=== PATIENT | female | born 1950 | race Caucasian/White ===

== ENCOUNTER 2018-04-14 23:43 | Emergency (ER) | payer MEDICARE, OTHER ==
[~2018-04-14] VITALS: Ht 165.1 cm; Wt 81.7 kg
[2018-04-14] MEDS ORDERED: METHYLPREDNISOLO4 M1 PO (23:59)
[2018-04-14] MEDS ORDERED: MOBIC15 MG PO (23:59)
[2018-04-15] MEDS ORDERED: CARISOPRODOL 3350 MG PO
[2018-04-15 00:15] LABS: HEMATOCRIT 35.8 % (37.0-47.0); HEMOGLOBIN 12.1 gm/dL (12.0-15.0); MCH 30.8 pg (26.0-34.0); MCHC 33.9 g/dL (28.0-37.0); MCV 90.8 fL (80.0-100.0); MPV 8.3 fl. (7.2-11.1); NUCLEATED RBCS 0 /100WBC; PLATELET COUNT* 231 thou/uL (150-400); RBC 3.94 mil/uL (4.20-5.00); RDW-CV 13.2 % (10.5-14.5); WBC 6.8 thou/uL (4.0-11.0)
[2018-04-15 00:44] LABS: ALBUMIN 3.5 g/dL (3.4-5.0); CALCIUM 8.3 mg/dL (8.5-10.1); CREATININE 0.8 mg/dL (0.6-1.3); POTASSIUM 4.2 mmol/L (3.5-5.1); TOTAL BILIRUBIN 0.4 mg/dL (<0.1-1.0); TOTAL PROTEIN 7.1 g/dL (6.4-8.2)
[2018-04-15 01:42] LABS: ABSOLUTE LYMPHOCYTES 0.4 thou/uL (0.8-5.3); ABSOLUTE MONOCYTES 0.1 thou/uL (0.0-1.2); ABSOLUTE NEUTROPHILS 6.3 thou/uL (1.6-8.1)
[2018-04-15 01:43] LABS: LARGE PLATELETS RARE; PLATELET ESTIMATE ADEQUATE
[2018-04-15] MEDS ORDERED: FLEXERIL PO (01:53)
[2018-04-15] MEDS ORDERED: PERCOCET 5-3251 EACH PO (01:53)
[2018-04-15 02:25] VITALS: BP 112/70
--- NOTE | 2018-04-17 10:25 | EKG ---
[place] [address] ELECTROCARDIOGRAM REPORT Name: SHERIF SMALLS Room: [facility]#: [id number] Admission: 04/14/18 Attend Phys: Discharge: 04/15/18 Date of : 54 Report #: [id number] THIS REPORT FOR: //name// [facility] ED Test Date: 2018-04-15 Test Time: 00:13:44 Pat Name: SHERIF SMLALS Department: Room: Gender: F Route Sales Representative: MADHAV : 1950 Requested By: Thom Lance Order Number: [id number] MD: Alvin Fish Measurements Intervals [place] Rate: 81 P: 50 ME: 172 QRS: -11 QRSD: 97 T: 10 QT: 380 QTc: 441 Interpretive Statements Sinus rhythm normal ekg Electronically Signed On 04-17-2018 10:25:19 CDT by Alvin Fish [email or web address] <ELECTRONICALLY SIGNED> By: Alvin Fish MD, [facility] 04/17/18 1025 0013 0013 Alvin Fish MD, FACC /EPI
== END 2018-04-15 01:45 | disposition home or self-care (01) ==
LOC: M.ERS 23:43
PROVIDERS: Family Medicine
DX: M54.6 Pain in thoracic spine (principal); L40.9 Psoriasis, unspecified; Z85.3 Personal history of malignant neoplasm of breast